=== PATIENT | female | born 1945 | race Caucasian/White ===

== ENCOUNTER → 2017-06-20 | Outpatient (CLI) | payer MEDICARE ==
--- NOTE | 2017-06-20 10:22 | WWHP ---
[facility] - HISTORY AND PHYSICAL DATE OF SERVICE: 06/20/2017 CHIEF COMPLAINT: The patient is here for her routine gynecologic exam and mammogram. HPI: This is a 71-year-old, G3, P2-0-1-2 with an LMP of 1983. She is status post ROSLYN/BSO for benign reasons. The patient is without gynecologic complaints. PAST MEDICAL HISTORY: Chronic hypertension. Also history of asthma, currently not requiring medication and history of osteopenia. MEDICATIONS: Amlodipine 5 mg daily. ALLERGIES: No known drug allergies. PAST SURGICAL HISTORY: Bunionectomy 2004, ROSLYN/BSO in 1983, left breast biopsy years ago which was benign, multiple colonoscopies and the most recent was 2013, knee surgery 2015 and cataract surgery in 2016. PAST MOTORCOACH OPERATOR HISTORY: She does have a history of genital HSV and has no other history of STDs. SOCIAL HISTORY: She denies tobacco and drug use and has about 2 alcohol-containing drinks per month. She spends her [place] in [place], [place]. She is not sexually active and is a . FAMILY HISTORY: Unchanged from the 2015 H&P. REVIEW OF SYSTEMS: She has gained about 4 pounds over the last year. She denies respiratory or cardiac problems. GI: She has had some problems with IBS-type symptoms and is also lactose intolerant. She denies maltreatment or falling. : She has occasional slight urinary leakage, especially if she does not get to the bathroom in time. PHYSICAL EXAM: Blood pressure 146/77, height 4 feet 11 inches, weight 113 pounds, temperature 97.7, pulse 72. This is a well-developed, well-nourished, white female, who is alert and oriented x3, in no acute distress. HEENT is within normal limits. NECK: Supple without mass or thyromegaly. CHEST AND LUNGS: Clear to auscultation. HEART: Regular rate and rhythm. Breasts are without mass or discharge. Axillary exam is negative for adenopathy. Back negative for CVA tenderness. ABDOMEN: Soft, nontender, without palpable masses. PELVIC EXAM: External genitalia reveals [id number]-rvkyvrgc atrophy without lesions. Vagina reveals tgex-hz-sqtkevrd atrophy without lesions. There is no evidence of prolapse. Bimanual exam is negative for mass or tenderness. Rectovaginal exam is negative for mass or tenderness and is negative for occult blood. EXTREMITIES: Nontender. IMPRESSION: 1. A 71-year-old menopausal female who is status post total abdominal hysterectomy, bilateral salpingo-oophorectomy for benign reasons with normal gynecologic exam. 2. History of osteopenia. PLAN: 1. Pap smears have been discontinued. 2. Self breast examination was discussed. 3. Mammogram will be done today. 4. Osteoporosis prevention was discussed. We will plan on repeating bone density testing in 1 year. 5. She plans to get her flu shot in the near future. 6. She will return in 1 year. MMODL / IJN: [id number] /
--- NOTE | 2017-06-21 09:33 | MM ---
Reason for exam: screening (asymptomatic). Last mammogram was performed 1 year ago. History: Patient is postmenopausal. Family history of premenopausal breast cancer in sister at age 38 and breast cancer in maternal aunt at age 40. Benign excisional biopsy of the left breast, January 25, 1998. Physical Findings: A clinical breast exam by your physician is recommended on an annual basis and results should be correlated with mammographic findings. MG 3D Screening Mammo W/Cad Bilateral CC and MLO view(s) were taken. Prior study comparison: June 13, 2016, bilateral MG 3d screening mammo w/cad. June 08, 2015, bilateral MG diagnostic mammo w CAD [facility]. June 02, 2014, bilateral MG screening mammo w CAD. The breast tissue is heterogeneously dense. This may lower the sensitivity of mammography. No suspicious abnormality. ASSESSMENT: Negative, BI-RAD 1 RECOMMENDATION: Routine screening mammogram of both breasts in 1 year.
== END | disposition home or self-care (01) ==
LOC: WWCWWP 08:28
PROVIDERS: ATTEND Obstetrics & Gynecology
DX: Z12.31 Encounter for screening mammogram for malignant neoplasm of breast (principal)
CPT/HCPCS: 77063; G0202

== ENCOUNTER → 2018-07-18 | Outpatient (CLI) | payer MEDICARE ==
--- NOTE | 2018-07-19 14:58 | MM ---
Reason for exam: screening (asymptomatic). Last mammogram was performed 1 year and 1 month ago. History: Patient is postmenopausal. Family history of premenopausal breast cancer in sister at age 38 and breast cancer in maternal aunt at age 40. Benign excisional biopsy of the left breast, January 25, 1998. Physical Findings: A clinical breast exam by your physician is recommended on an annual basis and results should be correlated with mammographic findings. MG 3D Screening Mammo W/Cad Bilateral CC and MLO view(s) were taken. Prior study comparison: June 20, 2017, bilateral MG 3d screening mammo w/cad. June 13, 2016, bilateral MG 3d screening mammo w/cad. The breast tissue is heterogeneously dense. This may lower the sensitivity of mammography. Finding: There is a 3 mm equal density (isodense), oval mass located 7 cm from the nipple in the right breast. New finding since June 13, 2016 and June 20, 2017. ASSESSMENT: Incomplete: need additional imaging evaluation, BI-RAD 0 RECOMMENDATION: Ultrasound of the right breast. (lower inner quadrant) [facility] will attempt to contact patient to return for ultrasound.
== END | disposition home or self-care (01) ==
LOC: RADMAMWWP 07:53
PROVIDERS: ATTEND Internal Medicine
DX: Z12.31 Encounter for screening mammogram for malignant neoplasm of breast (principal)
CPT/HCPCS: 77063; 77067

== ENCOUNTER → 2018-07-19 | Outpatient (CLI) | payer MEDICARE ==
--- NOTE | 2018-07-22 14:44 | BD ---
EXAMINATION TYPE: Axial Bone Density DATE OF EXAM: 07/19/2018 COMPARISON: 06.13.2016 CLINICAL HISTORY: 72 YR OLD FEMALE...ICD-10 CODE: Z13.820 ENCOUNTER FOR SCREENING FOR OSTEOPOROSIS Height: 58.3 Weight: 111 FRAX RISK QUESTIONS: NOTHING TO NOTE HERE RISK FACTORS HISTORY OF: Family History of Osteoporosis: YES, HER MOTHER, SISTER Active: YES Diet low in dairy products/other sources of calcium: YES, LACTOSE INTOLERANT Postmenopausal woman: YES, AT 47 YRS OLD....TOTAL HYST Lost more than 2 inches in height since high school: YES MEDICATIONS: Additional Medications: BP MEDS, Additional History: KNEE SCOPE 2 YRS AGO EXAM MEASUREMENTS: Bone mineral densitometry was performed using the [email or web address] System. Bone mineral density as measured about the Lumbar spine is: ----- L1-L4(G/cm2): 1.010 T Score Values are as follows: ----- L1: -1.5 ----- L2: -1.7 ----- L3: -1.3 ----- L4: -1.4 ----- L1-L4: -1.4 Bone mineral density has: Decreased-3.7ince study of: 06.13.2016 Bone mineral density about the R hip (g/cm2): 0.810 Bone mineral density about the L hip (g/cm2): 0.833 T Score values are as follows: -----R Neck: -2.5 -----L Neck: -2.5 -----R Total: -1.6 -----L Total: -1.7 Bone mineral density has: Increased 2.2since study of: 06.13.2016 FRAX%s: THERE IS A 15.4% CHANCE FOR A MAJOR OSTEOPOROTIC FX AND A 4.7% FOR HIP FX.....PROBABILITY OF FX IN 10 YRS TIME IMPRESSION: Osteopenia. NOTE: T-SCORE=SD OF THE YOUNG ADULT MEAN.
== END | disposition home or self-care (01) ==
LOC: RADBDWWP 11:51
PROVIDERS: ATTEND Internal Medicine
DX: M85.851 Other specified disorders of bone density and structure, right thigh (principal); M85.852 Other specified disorders of bone density and structure, left thigh
CPT/HCPCS: 77080

== ENCOUNTER → 2018-07-29 | Outpatient (CLI) | payer MEDICARE ==
--- NOTE | 2018-07-29 14:12 | USB ---
Reason for exam: additional evaluation requested from abnormal screening. History: Patient is postmenopausal. Family history of premenopausal breast cancer in sister at age 38 and breast cancer in maternal aunt at age 40. Benign excisional biopsy of the left breast, January 25, 1998. Physical Findings: Nurse did not find any significant physical abnormalities on exam. US Breast Workup Limited RT Right limited breast ultrasound including focal area of concern, retroareolar and axilla demonstrates a 0.5 x 0.2 x 0.4cm oval, cystic lesion at 3 o'clock. These results were verbally communicated with the patient and result sheet given to the patient on 07/29/18. ASSESSMENT: Benign, BI-RAD 2 RECOMMENDATION: Return to routine screening mammogram schedule for both breasts.
== END | disposition home or self-care (01) ==
LOC: RADUSWWP 10:11
PROVIDERS: ATTEND Internal Medicine
DX: R92.8 Other abnormal and inconclusive findings on diagnostic imaging of breast (principal)

== ENCOUNTER → 2019-07-21 | Outpatient (CLI) | payer MEDICARE ==
--- NOTE | 2019-07-22 07:42 | MM ---
Reason for exam: screening (asymptomatic). Last mammogram was performed 1 year ago. History: Patient is postmenopausal. Family history of premenopausal breast cancer in sister at age 38 and breast cancer in maternal aunt at age 40. Benign excisional biopsy of the left breast, January 25, 1998. Physical Findings: A clinical breast exam by your physician is recommended on an annual basis and results should be correlated with mammographic findings. MG 3D Screening Mammo W/Cad Bilateral CC and MLO view(s) were taken. Prior study comparison: July 18, 2018, bilateral MG 3d screening mammo w/cad. June 20, 2017, bilateral MG 3d screening mammo w/cad. There are scattered fibroglandular densities. There is a stable right middle depth lower inner quadrant mass. Benign appearing bilateral calcifications. No suspicious abnormality. No significant changes when compared with prior studies. ASSESSMENT: Benign, BI-RAD 2 RECOMMENDATION: Routine screening mammogram of both breasts in 1 year.
== END | disposition home or self-care (01) ==
LOC: RADMAMWWP 09:28
PROVIDERS: ATTEND Internal Medicine
DX: Z12.31 Encounter for screening mammogram for malignant neoplasm of breast (principal)
CPT/HCPCS: 77063; 77067

== ENCOUNTER → 2021-06-30 | Outpatient (CLI) | payer MEDICARE ==
--- NOTE | 2021-06-30 11:20 | BD ---
EXAMINATION TYPE: Axial Bone Density DATE OF EXAM: 06/30/2021 COMPARISON: DEXA bone scan 2017 CLINICAL HISTORY: Postmenopausal female. Height: 58.5 Weight: 116.0 FRAX RISK QUESTIONS: Alcohol (3 or more units per day): no Family History (Parent hip fracture): no Glucocorticoids (More than 3mos): no (Ex: prednisone, prednisolone, methylprednisolone, dexamethasone, and hydrocortisone). History of Fracture in Adulthood: no Secondary Osteoporosis: 1. Type 1 Diabetes: no 2. Hyperthyroidism: no 3. Menopause before 45: yes 4. Malnutrition: no 5. Chronic liver disease: no Rheumatoid Arthritis: no Current Tobacco Use: no RISK FACTORS HISTORY OF: Surgery to Spine/Hip(right/left)/Wrist (right/left): no Family History of Osteoporosis: yes Active: yes Diet low in dairy products/other sources of calcium: yes Postmenopausal woman: yes Lost more than 2 inches in height since high school: no MEDICATIONS: blood pressure meds Additional History: EXAM MEASUREMENTS: Bone mineral densitometry was performed using the [employer] System. Bone mineral density as measured about the Lumbar spine is: ----- L1-L4(G/cm2): 1.013 T Score Values are as follows: ----- L2: -1.7 ----- L3: -1.2 ----- L4: -1.3 ----- L1-L4: -1.4 Bone mineral density has: increased 0.8 % since study of: 07.19.2018 Bone mineral density about the R hip (g/cm2): 0.660 Bone mineral density about the L hip (g/cm2): 0.693 T Score values are as follows: -----R Neck: -2.7 -----L Neck: -2.5 -----R Total: -1.9 -----L Total: -1.4 Bone mineral density has: decreased -2.6 % since study of: 07.19.2018 IMPRESSION: Osteoporosis (T Score less than -2.5) is now present. There is increased fracture risk and therapy is usually indicated based on age. Re-Screen 1-2 years. NOTE: T-SCORE=SD OF THE YOUNG ADULT MEAN.
== END | disposition home or self-care (01) ==
LOC: RADBDWWP 09:52
PROVIDERS: ATTEND Family Medicine
DX: M81.0 Age-related osteoporosis without current pathological fracture (principal); M85.89 Other specified disorders of bone density and structure, multiple sites; Z78.0 Asymptomatic menopausal state
CPT/HCPCS: 77080

== ENCOUNTER → 2021-08-02 | Outpatient (CLI) | payer MEDICARE ==
--- NOTE | 2021-08-03 10:51 | MM ---
Reason for exam: screening (asymptomatic). Last mammogram was performed 2 years ago. History: Patient is postmenopausal. Family history of premenopausal breast cancer in sister at age 38 and breast cancer in maternal aunt at age 40. Benign excisional biopsy of the left breast, January 25, 1998. Physical Findings: A clinical breast exam by your physician is recommended on an annual basis and results should be correlated with mammographic findings. MG 3D Screening Mammo W/Cad Bilateral CC and MLO view(s) were taken. Prior study comparison: July 21, 2019, bilateral MG 3d screening mammo w/cad. July 18, 2018, bilateral MG 3d screening mammo w/cad. The breast tissue is heterogeneously dense. This may lower the sensitivity of mammography. There are benign appearing vascular calcifications bilaterally. There is chronic nodularity in the right breast. There is no discrete abnormality. ASSESSMENT: Benign, BI-RAD 2 RECOMMENDATION: Routine screening mammogram of both breasts in 1 year.
== END | disposition home or self-care (01) ==
LOC: RADMAMWWP 07:30
PROVIDERS: ATTEND Family Medicine
DX: Z12.31 Encounter for screening mammogram for malignant neoplasm of breast (principal); Z80.3 Family history of malignant neoplasm of breast; Z78.0 Asymptomatic menopausal state
CPT/HCPCS: 77063; 77067

== ENCOUNTER → 2022-08-03 | Outpatient (CLI) | payer MEDICARE ==
--- NOTE | 2022-08-04 08:32 | MM ---
Reason for Exam: Screening (asymptomatic). Last screening mammogram was performed 12 month(s) ago. Patient History: Menarche at age 13. First Full-Term at age 18. Left ovary removed at age 47. Right ovary removed at age 47. Hysterectomy at age 47. Postmenopausal. 01/25/1998, Benign Excisional Biopsy on the left side. Maternal aunt had breast cancer, age 40. Sister had breast cancer, age 38. Risk Values: [place] 5 year model risk: 3.5%. NCI Lifetime model risk: 6.6%. Prior Study Comparison: 07/18/2018 Bilateral Screening Mammogram, [facility]. 07/21/2019 Bilateral Screening Mammogram, [facility]. 08/02/2021 Bilateral Screening Mammogram, [facility]. Tissue Density: There are scattered fibroglandular densities. Findings: Analyzed By CAD. There is no suspicious group of microcalcifications or new suspicious mass in either breast. Overall Assessment: Negative, BI-RAD 1 Management: Screening Mammogram of both breasts in 1 year. A clinical breast exam by your physician is recommended on an annual basis and results should be correlated with mammographic findings. [facility] will attempt to contact patient to return for supplemental views and ultrasound if indicated. Electronically signed and approved by: Marquise Birch DO
== END | disposition home or self-care (01) ==
LOC: RADMAMWWP 07:47
PROVIDERS: ATTEND Family Medicine
DX: Z12.31 Encounter for screening mammogram for malignant neoplasm of breast (principal); Z78.0 Asymptomatic menopausal state; Z80.3 Family history of malignant neoplasm of breast
CPT/HCPCS: 77063; 77067

== ENCOUNTER → 2023-02-09 | Day surgery (SDC) | payer MEDICARE ==
[~2023-02-09] MED LIST: DEXAMETHASONE SOD PHOSPHATE 4 MG/ML 1 ML VIAL IV ONE; DEXAMETHASONE SOD PHOSPHATE 4 MG/ML 1 ML VIAL IVP ONE; DEXAMETHASONE SOD PHOSPHATE 4 MG/ML 1 ML VIAL ONE; HYDROmorphone 0.5 MG/0.5 ML SYRINGE IVP PRN; LACTATED RINGERS 1,000 ML IV ONE; LACTATED RINGERS 1,000 ML IV SCH; LIDOCAINE 2% INJ 20 MG/ML (2 ML VIAL) ONE; MIDAZOLAM 2 MG/2 ML VIAL IV PRN; MIDAZOLAM 2 MG/2 ML VIAL IVP ONE; MIDAZOLAM 2 MG/2 ML VIAL ONE; ONDANSETRON 4 MG/2 ML VIAL IVP ONE; PROPOFOL 10 MG/ML 20 ML VIAL IV ONE; ROPIVACAINE 5 MG/ML 30 ML VIAL ONE; ceFAZolin 1,000 MG in SODIUM CHLORIDE 0.9% 1,000 ML IRRIGATION ONE; ePHEDrine 50 MG/ML 1 ML VIAL ONE; fentaNYL (PF) 50 MCG/ML 2 ML AMP ONE
[2023-02-09 10:03] VITALS: TEMP 97.9
--- NOTE | 2023-02-09 11:43 | P.ANPRN ---
Procedure Note - Anesthesia - Nerve Block Performed Right Popliteal Single Time Out Performed: Yes Date of Procedure: 02/09/23 Procedure Start Time: : Procedure Stop Time: :35 Location of Patient: PreOp Indication: Acute Post-Operative Pain, Requested by Surgeon Sedation Type: Sedate with meaningful contact maintained Preparation: Sterile Prep, Sterile Dressing Position: Left Lateral Catheter: None Needle Types: Facet Needle Gauge: 20 Ultrasound used to visualize needle placement: Yes Ultrasound used to observe medication spread: Yes Injectate: 0.5% Ropivacaine (see comment for volume) (30 ml + decadron 4 mg) Blood Aspirated: No Pain Paresthesia on Injection Noted: No Resistance on Injection: Normal Image Stored and Saved: Yes Events: Uneventful and Well Tolerated
[2023-02-09 15:18] VITALS: RESP 16
[2023-02-09 15:33] VITALS: BP 137/96; PULSE 77
--- NOTE | 2023-02-14 14:09 | OP ---
OPERATIVE REPORT DATE OF SERVICE : 02/09/2023 PREOPERATIVE DIAGNOSES: 1. Dislocated second metatarsophalangeal joint, right foot. 2. Dislocated proximal interphalangeal joint, third digit, right foot. 3. Hammertoe, second digit, right foot. POSTOPERATIVE DIAGNOSES: 1. Dislocated second metatarsophalangeal joint, right foot. 2. Dislocated proximal interphalangeal joint, third digit, right foot. 3. Hammertoe, second digit, right foot. PROCEDURES PERFORMED: 1. Open repair of dislocated second metatarsophalangeal joint, right foot. 2. Open reduction with internal fixation, dislocated proximal interphalangeal joint, third digit, right foot. 3. Hammertoe correction, second digit, right foot. ANESTHESIA: General with preoperative nerve block. HEMOSTASIS: Right ankle tourniquet at 250 mmHg. ESTIMATED BLOOD LOSS: Minimal. MATERIALS: Two 2.3 mm headless screws and two 2.0 mm screws. INJECTABLES: None. SPECIMENS: None. COMPLICATIONS: None. DESCRIPTION OF PROCEDURE: Prior to the patient being brought to the operative room, Anesthesia administered nerve block on the right lower extremity. The patient was brought to the operating room and placed on table in supine position. A time-out was taken to confirm correct patient identifiers, correct laterality of surgery, and correct procedure. When all staff in the room were in agreement with the time-out, the patient was induced and placed under general anesthesia. A well-padded tourniquet was placed on the right ankle and the right foot was prepped and draped in the usual manner. The right foot was exsanguinated and the tourniquet was inflated to 250 mmHg. Attention was first directed over the second digit where an incision was made starting at the proximal interphalangeal joint in a curvilinear fashion extending over the second metatarsophalangeal joint. The incision was deepened into the subcutaneous tissue careful to identify, avoid and retract all neurovascular structures and cauterize any bleeding vessels. Blunt dissection was then continued around the second metatarsophalangeal joint. Then, a capsular incision was made along the lateral aspect of the capsule just lateral to the long extensor tendon and then the osseous structures were reflected from their osseous attachments on the second metatarsal head and the head was exposed and the Parker osteotomy was performed utilizing standard technique of the second metatarsal. Once completed, the capital fragment shifted proximally, and fluoroscopy was used to check the amount of correction and shortening. As it was shortened, the digit spontaneously relocated and lied in a more plantigrade position. A guidewire was used to temporarily fixate the osteotomy and again fluoroscopy was used to check the overall alignment. Another guidewire was placed distal to the first and then overdrilled for the 2.0 mm screw. The wire was removed and the screw inserted and tightened. There was compression across the osteotomy. The second wire was overdrilled and removed and then another 2.0 mm screw inserted until it compressed the osteotomy. Fluoroscopic imaging showed maintenance of the correction and proper placement of hardware. The dorsal lip of the second metatarsal created by shifting the fragment was then removed and all the roughened edges smoothed with a rasp. Then, attention was directed to the proximal interphalangeal joint where the capsule was incised dorsally, resecting the extensor tendons, collateral ligaments and exposing the proximal phalangeal head. A sagittal saw was used to remove this head of the proximal phalanx near the neck and then that was removed from the surgical field. A total of the cartilage on the base of the middle phalanx was also removed down to subchondral bone. A guidewire for a 2.3 mm headless screw was then used to create a digital measurement advisor hole in the proximal phalanx and then was removed, inserted the base of the middle phalanx and advanced up the distal aspect of the digit, leaving a small portion exposed at the base of the middle phalanx, it was then realigned with the digital measurement advisor hole in the proximal phalanx in a retrograde fashion advanced to the base. Fluoroscopy was used to confirm the proper placement of the wire. Small stab incision was made at the location of the wire at the distal tip of the toe and then the 2.3 mm headless screw was inserted and advanced until the head engaged the distal phalanx and there was compression at the arthrodesis site. The guidewire was then removed. Attention was then directed to the third digit where a transverse incision was made over the proximal interphalangeal joint. It was deepened down to the subcutaneous tissue careful to identify, avoid, and retract any neurovascular structures and cauterize any bleeding vessels. The third digit had a significant subluxation medially. The joint was incised and opened releasing the collateral ligaments and the extensor tendon, exposing the proximal phalangeal head. Then, the head of the proximal phalanx was resected and done in a fashion to angulate it to correct the deformity of the toe and then the head was removed and the articular cartilage of the base of middle phalanx also debrided down the bone. A guidewire for the 2.3 mm screw inserted into the proximal phalanx of the digital measurement advisor hole, then it was removed and inserted at the central aspect of the base of the middle phalanx and advanced up the distal aspect of the third digit, leaving a small portion exposed in the arthrodesis site. The wire was aligned with the digital measurement advisor hole in the proximal phalanx and advanced in a retrograde fashion to the base. Fluoroscopy confirmed the proper placement of the wire. A small stab incision was made through the skin at the entrance of the wire and then another 2.3 mm headless screw was inserted until the threads engaged the distal phalanx and compressed the arthrodesis site. Final fluoroscopic images showed rectus alignment of the digit as well as anatomic reduction of the dislocated second metatarsophalangeal joint. The wire was removed from the third digit and all wounds were thoroughly irrigated. The capsule of the second metatarsophalangeal joint was closed with 3-0 Vicryl. Subcutaneous closure was done with 4-0 Monocryl, skin closed over the second digit was done with 3-0 Stratafix in a running subcuticular fashion and then 3-0 nylon was used to close the third digit. Dermal glue was applied over the second digit incision only and allowed to dry and covered with Steri-Strips. An Arthrex jumpstart dressing was placed over all incisions and a bulky dry dressing applied to the right foot. The tourniquet was released and capillary refill returned to all digits of the right foot. The patient was then placed in a well-padded, well-molded plaster posterior mold/sugar-tong splint. The ankle and foot were held in neutral position as it dried. Then, the anesthesia was reversed and the patient was taken to recovery with vital signs stable. MMODL / IJN: [id number] /
== END | disposition home or self-care (01) ==
LOC: OR 09:14
PROVIDERS: ATTEND Podiatrist
DX: S93.124A Dislocation of metatarsophalangeal joint of right lesser toe(s), initial encounter (principal); S93.114A Dislocation of interphalangeal joint of right lesser toe(s), initial encounter; M20.41 Other hammer toe(s) (acquired), right foot; I10 Essential (primary) hypertension; F10.20 Alcohol dependence, uncomplicated; Z98.890 Other specified postprocedural states; Z79.899 Other long term (current) drug therapy
CPT/HCPCS: 64445; 28645; 28675; 28285; C1713; J2250; J1100; J0690 ×2; J2405; J3010; J2795; J2704; J2001

== ENCOUNTER 2023-08-14 11:50 | Day surgery (SDC) | payer MEDICARE ==
[2023-08-08 12:45] VITALS: BMI 23.2
[~2023-08-14 11:50] MED LIST changes: -DEXAMETHASONE SOD PHOSPHATE 4 MG/ML 1 ML VIAL IV ONE; -DEXAMETHASONE SOD PHOSPHATE 4 MG/ML 1 ML VIAL IVP ONE; -DEXAMETHASONE SOD PHOSPHATE 4 MG/ML 1 ML VIAL ONE; -HYDROmorphone 0.5 MG/0.5 ML SYRINGE IVP PRN; -LACTATED RINGERS 1,000 ML IV ONE; -LIDOCAINE 2% INJ 20 MG/ML (2 ML VIAL) ONE; -MIDAZOLAM 2 MG/2 ML VIAL IV PRN; -MIDAZOLAM 2 MG/2 ML VIAL IVP ONE; -MIDAZOLAM 2 MG/2 ML VIAL ONE; -ONDANSETRON 4 MG/2 ML VIAL IVP ONE; -PROPOFOL 10 MG/ML 20 ML VIAL IV ONE; -ROPIVACAINE 5 MG/ML 30 ML VIAL ONE; -ceFAZolin 1,000 MG in SODIUM CHLORIDE 0.9% 1,000 ML IRRIGATION ONE; -ePHEDrine 50 MG/ML 1 ML VIAL ONE; -fentaNYL (PF) 50 MCG/ML 2 ML AMP ONE
[2023-08-14 13:07] VITALS: TEMP 97.9
[2023-08-14] MEDS ORDERED: PROPOFOL 10 MG/ML 20 ML VIAL IV ONE (13:40)
--- NOTE | 2023-08-14 13:57 | P.PCN ---
Date of Procedure: 08/14/23 Procedure(s) Performed: BRIEF HISTORY: Patient is a 77-year-old pleasant white female scheduled for an elective colonoscopy as a part of screening for colon cancer. PROCEDURE PERFORMED: Colonoscopy. PREOPERATIVE DIAGNOSIS: Screening for colon cancer. IV sedation per Anesthesia. PROCEDURE: After informed consent was obtained, the patient, was brought into the endoscopy unit. IV sedation was administered by Anesthesia under continuous monitoring. Digital rectal examination was normal. Initially the Olympus CF-160 flexible video colonoscope was then inserted in the rectum, gradually advanced into the cecum without any difficulty. Careful examination was performed as the scope was gradually being withdrawn. Ileocecal valve and the appendiceal orifice were visualized and appeared normal. Prep was excellent. Mucosa of the cecum, ascending colon, transverse colon, descending colon, sigmoid colon, and rectum appeared normal. Scattered sigmoid diverticulosis. Retroflexion was performed in the rectum and no lesions were seen. The patient tolerated the procedure well. IMPRESSION: Normal-appearing colon from rectum to cecum with no evidence of colorectal neoplasia Scattered sigmoid diverticulosis . RECOMMENDATIONS: Findings of this examination were discussed with the patient as well as a family. She was advised to be a high-fiber diet and take fiber supplements a regular basis.
[2023-08-14 15:10] VITALS: BP 127/88; PULSE 74; RESP 17
--- NOTE | 2023-08-14 15:32 | XR ---
EXAMINATION TYPE: XR abdomen 1V DATE OF EXAM: 08/14/2023 COMPARISON: None INDICATION: Postcolonoscopy pain TECHNIQUE: Single view abdomen upright view FINDINGS: There is a normal bowel gas pattern. There is present through the redundant transverse colon. No susp icious differential air-fluid levels are present. No free air is evident. Psoas margins are normal. No organomegaly is present. IMPRESSION: 1. Unremarkable Abdomen
== END 2023-08-14 15:49 | disposition home or self-care (01) ==
LOC: ORWHC2ENDO 11:50
PROVIDERS: ATTEND Internal Medicine Gastroenterology
DX: Z12.11 Encounter for screening for malignant neoplasm of colon (principal); K57.30 Diverticulosis of large intestine without perforation or abscess without bleeding; I10 Essential (primary) hypertension; K58.2 Mixed irritable bowel syndrome; Z79.899 Other long term (current) drug therapy; Z98.890 Other specified postprocedural states
CPT/HCPCS: 74018; J2704; G0121